=== PATIENT | female | born 1970 | race Caucasian/White ===

== ENCOUNTER 2016-08-30 08:13 | Day surgery (SDC) | payer OTHER ==
[~2016-08-30] VITALS: Ht 170.2 cm; Wt 82.0 kg
[~2016-08-30 08:13] MED LIST: ADVAIR 100/501 DISK IH; INVEGA3 MG PO; INVEGA9 M1 PO; LAMICTAL XR100 MG PO; LAMOTRIGINE300 MG PO; TRAZODONE HCL50 MG PO; VRAYLAR6 MG PO; ZOLPIDEM TARTRA10 MG PO
[2016-08-30 08:47] VITALS: BP 128/77
[2016-08-30] MEDS ORDERED: ENDOCET 5-3251 EACH PO (11:48)
[2016-08-30] MEDS ORDERED: IBUPROFEN800 MG PO (11:49)
[2016-08-30 12:35] VITALS: BP 117/69
[2016-08-30 13:29] VITALS: BP 111/69
[2016-08-30 15:36] VITALS: BP 122/76
== END 2016-08-30 15:42 | disposition home or self-care (01) ==
LOC: SDC 08:13
PROC: 0UB54ZZ Excision of Right Fallopian Tube, Percutaneous Endoscopic Approach (ICD-10-PCS; principal; 2016-08-30)
DX: N70.11 Chronic salpingitis (principal); R10.31 Right lower quadrant pain; J45.909 Unspecified asthma, uncomplicated; Z88.2 Allergy status to sulfonamides
CPT/HCPCS: 88305; J0131; J0690; J1100; J1885; J2250; J2405; J2710; J3010

== ENCOUNTER 2018-01-07 14:16 | Emergency (ER) | payer OTHER ==
[~2018-01-07] VITALS: Ht 170.2 cm; Wt 79.7 kg
[~2018-01-07 14:16] MED LIST changes: +ENDOCET 5-3251 EACH PO; +IBUPROFEN800 MG PO
[2018-01-07 15:16] LABS: HEMATOCRIT 38.7 % (36.0-46.0); HEMOGLOBIN 13.2 G/DL (11.9-15.5); MCH 29.3 PG (29.0-34.0); MCHC 34.1 G/DL (30.0-36.0); MCV 85.8 FL (83-99); PLATELET COUNT 253 K/uL (156-360); RBC DIS.WIDTH-CV 12.4 % (11.8-14.6); RBC DIS.WIDTH-SD 38.5 % (39-53); RED BLOOD COUNT 4.51 M/uL (3.80-5.20); WHITE BLOOD COUNT 8.8 K/uL (4.1-10.2)
[2018-01-07 15:20] LABS: APPEARANCE CLEAR ((CLEAR)); BILIRUBIN NEGATIVE; BLOOD NEGATIVE; COLOR YELLOW ((YELLOW)); GLUCOSE (STRIP) NEGATIVE; KETONES 5; LEUKOCYTES NEGATIVE; NITRITE NEGATIVE; PROTEIN (STRIP) NEGATIVE; UCUL ADDED? NO; UROBILINOGEN 0.2 MG/DL (0.2-1.0)
[2018-01-07 15:25] LABS: ALBUMIN 4.3 g/dL (3.2-4.8); CHLORIDE 106 mEq/L (99-109); POTASSIUM 4.1 mEq/L (3.7-5.4); SODIUM 139 mEq/L (136-147)
[2018-01-07 15:27] LABS: GLUCOSE 89 mg/dL (70-99); TOTAL PROTEIN 7.4 g/dL (6.4-8.3)
[2018-01-07 15:29] LABS: TOTAL BILIRUBIN 0.4 mg/dL (0.0-1.0)
[2018-01-07 15:31] LABS: ALKALINE PHOSPHATASE 69 IU/L (3-129); CREATININE 0.9 mg/dL (0.6-1.3); GFR ESTIMATE (CALCULATED) > 59 mL/min/
[2018-01-07 15:32] LABS: AST (GOT) 13 IU/L (2-34); UREA NITROGEN (BUN) 10 mg/dL (9-23)
[2018-01-07 15:34] LABS: ALT (GPT) 12 IU/L (3-49)
[2018-01-07 17:02] LABS: DIRECT BILIRUBIN 0.2 mg/dL (0.0-0.3)
[2018-01-07 17:03] LABS: LIPASE 13 U/L (1.0-51.0)
[2018-01-07] MEDS ORDERED: ULTRAM50 MG PO (19:18)
[2018-01-07] MEDS ORDERED: NAPROSYN500 MG PO (19:18)
[2018-01-07 19:33] VITALS: BP 134/77
== END 2018-01-07 19:35 | disposition home or self-care (01) ==
LOC: EME 14:16
DX: N83.201 Unspecified ovarian cyst, right side (principal); I70.0 Atherosclerosis of aorta; K42.9 Umbilical hernia without obstruction or gangrene; M47.896 Other spondylosis, lumbar region; F25.9 Schizoaffective disorder, unspecified; Z79.51 Long term (current) use of inhaled steroids; Z87.891 Personal history of nicotine dependence; Z98.890 Other specified postprocedural states; Z90.710 Acquired absence of both cervix and uterus; Z88.2 Allergy status to sulfonamides
CPT/HCPCS: 74177; 80053; 81003; 82248; 83690; 85027; 93005; 99281; 99285; J2405; J3010; J7030